=== PATIENT | male | born 1980 | race African-American/Black ===

== ENCOUNTER 2020-12-08 09:50 | Emergency (ER) | payer SELFPAY ==
[~2020-12-08] VITALS: Ht 203.2 cm; Wt 109.0 kg
[2020-12-08] MEDS ORDERED: SODIUM CHLORIDE 0.9% 1,000 ML IV ONE (10:30)
[2020-12-08] MEDS ORDERED: LORAZEPAM 2MG/ML CPJ IV ONE (10:30)
[2020-12-08 11:26] LABS: BASOPHILS % 0.4 % (0.0-2.0); EOSINOPHILS % 0.1 % (0.0-5.0); HEMATOCRIT. 37.4 % (42.0-52.0); HEMOGLOBIN. 12.6 g/dL (14.0-18.0); LYMPHOCYTES % 17.7 % (20.0-50.0); MEAN CORPUSCULAR HEMOGLOBIN 31.9 pg (28.0-32.0); MEAN PLATELET VOLUME 8.3 fl (7.4-10.4); MONOCYTES % 9.5 % (2.0-8.0); NEUTROPHILS % 72.3 % (40.0-76.0); PLATELET 211 x1000/uL (130-400); RED BLOOD CELL COUNT 3.94 mill/uL (4.7-6.1); RED CELL DISTRIBUTION WIDTH 14.9 % (11.6-14.6)
[2020-12-08 11:31] LABS: CHLORIDE 106 mEq/L (98-107)
[2020-12-08 11:35] LABS: INR 1.1; PROTHROMBIN TIME 12.1 sec (9.6-11.0)
[2020-12-08 14:00] VITALS: BP 103/66
== END 2020-12-08 16:48 | disposition home or self-care (01) ==
LOC: ER 09:50
DX: F15.10 Other stimulant abuse, uncomplicated (principal); R00.0 Tachycardia, unspecified
CPT/HCPCS: 36415; 80053; 83690; 85025; 85610; 93005; 96374; 99284; J2060; J7030